=== PATIENT | male | born 1965 | race Caucasian/White ===

== ENCOUNTER 2016-09-01 12:51 | Emergency (ER) ==
[2016-09-01] MEDS ORDERED: ASPIRIN PO STA (13:37)
--- NOTE | 2016-09-01 13:54 | PROVIDER DOCUMENTATION ---
[facility] General - General Chief Complaint: Chest Pain Stated Complaint: CHEST PAIN/SOB Time Seen by Provider: 09/01/16 12:57 Source: patient Allergies/Adverse Reactions: Patient Allergies Allergy/AdvReac Type Severity Reaction Status Date / Time diphenhydramine HCl * Allergy Mild HIVES Verified 09/01/16 13:07 [From Benadryl] Home Medications: Home Medication List Medication Instructions Recorded Confirmed Last Taken Type Albuterol Sulfate 09/01/16 Unknown History - History of Present Illness-EE General Nature of Presenting Problem: Pt is 51 y/o M presents to the ED with cold like symptoms. Pt states having cough, nasal congest, chest congestion, sore throat and SOB. Pt denies F. Pt denies N/V/D. Pt states he is unsure of duration of symptoms. EENT Location: reports: nose, throat Quality of Pain: reports: pressure Severity: reports: mild Onset/Duration: reports: unsure Timing: reports: still present, intermittent Prearrival Treatment: Initiated no prearrival treatment Associated Symptoms: reports: cough, nasal congestion/drainage, sore throat. denies: change in hearing, drooling, ear drainage, facial pain/swelling, fever, malaise, poor fluid intake, poor solids intake, sinus infection, tooth pain, voice change Locality of Occurance: Home Similar Symptoms Previously?: Yes Recently seen or treated by another doctor?: No - Eyes Eye Problem Symptoms: denies: eye pain - Ears Ear Problem Symptoms: reports: none - Nose Nose Problem Symptoms: other (nasal congestion) - Throat/Dental Throat/Dental Problem Symptoms: reports: sore throat. denies: toothache, jaw pain, swelling of jaw/face, trouble breathing, throat swelling, unable to swallow Review of Systems - Adult - REVIEW OF SYSTEMS - ADULT Constitutional: denies: chills, fever Eyes: denies: blurred vision, double vision Ears, Nose, Mouth & Throat: reports: sinus problem (nasal congestion), throat pain. denies: ear pain, nose pain Cardiovascular: denies: chest pain, heart murmur, irregular heart rate Respiratory: reports: cough, shortness of breath. denies: wheezing Gastrointestinal: denies: abdominal pain, diarrhea, nausea, vomiting Genitourinary: denies: dysuria, hematuria Musculoskeletal: denies: bone pain, joint pain, neck pain Integumentary: denies: hives, itching Neurological: denies: dizziness/vertigo, headache/migraines Psychiatric: reports: no symptoms reported Endocrine: reports: no symptoms reported Hematologic/Lymphatic: reports: no symptoms reported Allergic/Immunologic: reports: no symptoms reported All Other Systems: Reviewed and Negative Past History - Adult - PAST MEDICAL HISTORY-ADULT Review of Records: reports: Nursing Assessment Review, Medications Reviewed, Social history reviewed & non-contributory. Major Childhood Illnesses: reports: denies history Cardiovascular: reports: cardiac disease, murmur Respiratory: reports: COPD Gastrointestinal: reports: denies history Obstetrical/Gynecological: reports: denies history Genitourinary: reports: denies history Musculoskeletal: reports: denies history Neurological: reports: denies history Endocrine/Immune: reports: denies history Other Conditions: reports: denies history - PRIOR SURGERIES/PROCEDURES Surgical/Procedure History: reports: other (eye surgery) - PRIOR HOSPITALIZATIONS Prior Hospitalizations: reports: none - IMMUNIZATION STATUS Childhood Immunizations: See Nurse Assessment Flu Vaccine: See Nurse Assessment - FAMILY HISTORY Family History: reviewed, not pertinent - SOCIAL HISTORY Smoking: cigarettes, greater than 1 pack/day Provider spent 3-5 mins advising pt. on dangers of tobacco.: Discussed manners to quit use, and f/u contacts for add'l counseling. Substance Use: alcohol Alcohol Use Frequency: occasionally Number of drinks per typical drinking period:: 2 drinks Living Situation: family Physical Exam- EENT - Physical Exam EENT Initial Vital Signs Reviewed: Yes General Appearance: appears well, alert, no apparent distress Eye Exam: bilateral eye: normal inspection, PERRL, EOMI Ear Exam: bilateral ear: auricle normal, canal normal, TM normal Nasal Exam: normal inspection Throat Exam: normal mouth inspection, pharynx normal Neck: non-tender, full range of motion, supple, normal inspection Respiratory: chest non-tender, no pleuratic chest pain, no respiratory distress , no accessory muscle use, rhonchi (bilateral upper), wheezing (bilateral upper) Cardiovascular: normal peripheral pulses, regular rate, rhythm, no edema, no gallop, no JVD, no murmur Abdominal Exam: normal bowel sounds, non tender, soft, no organomegaly, no pulsatile mass Lymphatic: no adenopathy Back Exam: normal inspection, no CVA tenderness, no vertebral tenderness Extremity: normal range of motion, non-tender, normal gait, normal inspection, no pedal edema, no calf tenderness, normal capillary refill, pelvis stable Integumentary: normal color, normal turgor, warm/dry 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, grossly normal, no motor/sensory deficits Psych/Mental Status: normal mood/affect, normal thought content, normal thought process, oriented x 3 Progress - PLAN OF CARE/RESULTS Progress/Plan/Lab Results: Orders Category Date Time Status Cardiac Monitoring DIRECTED Care 09/01/16 13:38 Active Oxygen Therapy- ED Nursing DIRECTED Care 09/01/16 13:38 Active Saline Loc NOW Care 09/01/16 13:38 Active CHEST-2 VIEWS [RAD] Stat Exams 09/01/16 13:38 Ordered CBC WITH ELECTRONIC DIFF [HEME] Stat Lab 09/01/16 13:38 Ordered CK PROFILE [SP CHEM] Stat Lab 09/01/16 13:38 Ordered COMPREHENSIVE METABOLIC PANEL [CHEM] Stat Lab 09/01/16 13:38 Ordered PRO B-NATRIURETIC PEPTIDE Stat Lab 09/01/16 13:38 Ordered PROTIME WITH INR PL [COAG] Stat Lab 09/01/16 13:[address] [COAG] Stat Lab 09/01/16 13:38 Ordered TROPONIN T Stat Lab 09/01/16 13:38 Ordered Aspirin Med 09/01/16 13:37 Discontinued 325 mg PO STAT STA EKG [EKG] Stat Ther 09/01/16 13:38 Ordered Vital Signs - 24 hr 09/01/16 13:00 Temperature 98.6 F Pulse Rate 95 H Respiratory 24 Rate Blood Pressure 176/102 O2 Sat by Pulse 96 Oximetry Laboratory Tests 09/01/16 09/01/16 13:52 13:52 WBC 9.03 RBC 4.55 L Hgb 14.6 Hct 42.9 MCV 94.3 MCH 32.1 H MCHC 34.0 RDW Std Deviation 12.4 Plt Count 268 MPV 8.8 Immature Gran % (Auto) 0.2 Neut % (Auto) 70.1 Lymph % (Auto) 20.3 L Lyman % (Auto) 8.5 Eos % (Auto) 0.6 Baso % (Auto) 0.3 Immature Gran # (Auto) 0.02 Neut # (Auto) 6.33 Lymph # (Auto) 1.83 Lyman # (Auto) 0.77 H Eos # (Auto) 0.05 Baso # (Auto) 0.03 PT 13.6 INR 1.01 APTT (Factor Assay) 30.9 Laboratory Tests 09/01/16 09/01/16 09/01/16 13:52 13:52 13:52 WBC 9.03 RBC 4.55 L Hgb 14.6 Hct 42.9 MCV 94.3 MCH 32.1 H MCHC 34.0 RDW Std Deviation 12.4 Plt Count 268 MPV 8.8 Immature Gran % (Auto) 0.2 Neut % (Auto) 70.1 Lymph % (Auto) 20.3 L Lyman % (Auto) 8.5 Eos % (Auto) 0.6 Baso % (Auto) 0.3 Immature Gran # (Auto) 0.02 Neut # (Auto) 6.33 Lymph # (Auto) 1.83 Lyman # (Auto) 0.77 H Eos # (Auto) 0.05 Baso # (Auto) 0.03 PT INR APTT (Factor Assay) Sodium 136 Potassium 4.1 Chloride 100 Carbon Dioxide 26 Anion Gap 10 BUN 9 Creatinine 1.0 Estimated GFR/1.73 m2 > 60 BUN/Creatinine Ratio 9 Glucose 97 Calculated Osmolality 271 Calcium 9.5 Total Bilirubin 0.20 AST 16 ALT 14 Alkaline Phosphatase 129 H Creatine Kinase 95 Troponin T < 0.010 Total Protein 7.1 Albumin 4.1 Globulin 3.0 Albumin/Globulin Ratio 1.0 09/01/16 13:52 WBC RBC Hgb Hct MCV MCH MCHC RDW Std Deviation Plt Count MPV Immature Gran % (Auto) Neut % (Auto) Lymph % (Auto) Lyman % (Auto) Eos % (Auto) Baso % (Auto) Immature Gran # (Auto) Neut # (Auto) Lymph # (Auto) Lyman # (Auto) Eos # (Auto) Baso # (Auto) PT 13.6 INR 1.01 APTT (Factor Assay) 30.9 Sodium Potassium Chloride Carbon Dioxide Anion Gap BUN Creatinine Estimated GFR/1.73 m2 BUN/Creatinine Ratio Glucose Calculated Osmolality Calcium Total Bilirubin AST ALT Alkaline Phosphatase Creatine Kinase Troponin T Total Protein Albumin Globulin Albumin/Globulin Ratio Laboratory Tests 09/01/16 09/01/16 09/01/16 13:52 13:52 13:52 WBC RBC Hgb Hct MCV MCH MCHC RDW Std Deviation Plt Count MPV Immature Gran % (Auto) Neut % (Auto) Lymph % (Auto) Lyman % (Auto) Eos % (Auto) Baso % (Auto) Immature Gran # (Auto) Neut # (Auto) Lymph # (Auto) Lyman # (Auto) Eos # (Auto) Baso # (Auto) PT INR APTT (Factor Assay) Sodium 136 Potassium 4.1 Chloride 100 Carbon Dioxide 26 Anion Gap 10 BUN 9 Creatinine 1.0 Estimated GFR/1.73 m2 > 60 BUN/Creatinine Ratio 9 Glucose 97 Calculated Osmolality 271 Calcium 9.5 Total Bilirubin 0.20 AST 16 ALT 14 Alkaline Phosphatase 129 H Creatine Kinase 95 Troponin T < 0.010 Nxi-D-Kwttqfepllw Pept 66 Total Protein 7.1 Albumin 4.1 Globulin 3.0 Albumin/Globulin Ratio 1.0 09/01/16 09/01/16 13:52 13:52 WBC 9.03 RBC 4.55 L Hgb 14.6 Hct 42.9 MCV 94.3 MCH 32.1 H MCHC 34.0 RDW Std Deviation 12.4 Plt Count 268 MPV 8.8 Immature Gran % (Auto) 0.2 Neut % (Auto) 70.1 Lymph % (Auto) 20.3 L Lyman % (Auto) 8.5 Eos % (Auto) 0.6 Baso % (Auto) 0.3 Immature Gran # (Auto) 0.02 Neut # (Auto) 6.33 Lymph # (Auto) 1.83 Lyman # (Auto) 0.77 H Eos # (Auto) 0.05 Baso # (Auto) 0.03 PT 13.6 INR 1.01 APTT (Factor Assay) 30.9 Sodium Potassium Chloride Carbon Dioxide Anion Gap BUN Creatinine Estimated GFR/1.73 m2 BUN/Creatinine Ratio Glucose Calculated Osmolality Calcium Total Bilirubin AST ALT Alkaline Phosphatase Creatine Kinase Troponin T Wdt-F-Tkowfzskhhc Pept Total Protein Albumin Globulin Albumin/Globulin Ratio - EKG 1 Time of EKG reading by physician:: 13:43 EKG Read and Signed by:: Paul Jerome EKG Interpretation (*Must complete 3 of following elements*): Normal Rate: 86 Rhythm: normal sinus rhythm Comments: normal ECG - XRAY 1 XRAY: Bilateral XRAY Study: Chest Impression: Normal XRAY Interpretation: no pneumonia and congestive failure Departure - Departure Time of Disposition Order: 15:03 DIAGNOSIS: Sinusitis Qualifiers: Sinusitis location: unspecified location Chronicity: unspecified Qualified Code (s): J32.9 - Chronic sinusitis, unspecified Chest pain Qualifiers: Chest pain type: unspecified Qualified Code(s): R07.9 - Chest pain, unspecified HTN (hypertension) Qualifiers: Hypertension type: unspecified secondary hypertension Qualified Code(s): I15.9 - Secondary hypertension, unspecified; I15 - Secondary hypertension Disposition: HOME 01 Certified Medical Emergency: Emergent Condition: Stable Additional Instructions: ED Follow Up Instructions: You have been treated by a care provider in the Emergency Department. These instructions are being provided to you so you can have an understanding of how to care for yourself upon discharge. Upon discharge from the Emergency Department, you are responsible for making arrangements for follow-up care by a physician of your choice. Take all prescribed medications as directed. Return to the Emergency Department immediately for any new or worsening symptoms. You may call the Physician Referral phone number at [phone] to obtain a list of Physicians who are taking new patients. Referrals: Tatianna Mas [Primary Care Provider] - Attestation - Scribe Verification/Attestation Scribe:: Lakesha Garcia Acting as Scribe for:: Paul Jerome Scribe documention review:: This chart was documented by a scribe and accurately reflects the service the provider performed and the decisions made by the provider.
[2016-09-01 13:58] LABS: MANUAL DIFF NEEDED? NO
[2016-09-01 14:00] LABS: BASO% 0.3 % (0.0-0.8); EOS# 0.05 X1000 (0.0-0.7); EOS% 0.6 % (0.0-10.0); HEMATOCRIT 42.9 % (42.0-52.0); HEMOGLOBIN 14.6 g/dL (14.0-18.0); IMM GRAN# 0.02 X1000 (0.0-0.04); IMM GRAN% 0.2 % (0.0-0.5); LYMPH# 1.83 X1000 (1.2-3.4); LYMPH% 20.3 % (20.5-51.1); MCH 32.1 PG (27-31); MCV 94.3 FL (81-99); MONO# 0.77 X1000 (0.11-0.59); MONO% 8.5 % (1.7-9.3); MPV 8.8 FL (7.4-10.4); NEUT% 70.1 % (42.2-75.2); PLT 268 X1000 (130-400); RBC 4.55 XMIL (4.7-6.1)
[2016-09-01 14:18] LABS: INR 1.01 (0.86-1.15); PROTIME 13.6 Seconds (12.1-15.5)
[2016-09-01 14:19] LABS: PTT PL 30.9 Seconds (22.6-43.9)
[2016-09-01 14:21] LABS: AGAP 10; ALBUMIN 4.1 g/dL (3.5-5.0); ALKALINE PHOSPHATASE 129 U/L (32-122); BUN 9 mg/dL (8-22); CALCIUM 9.5 mg/dL (8.8-10.2); CHLORIDE 100 mmol/L (98-107); CK PROFILE 95 U/L (24-204); COSMO 271; GOT 16 U/L (10-34); GPT 14 U/L (10-44); POTASSIUM 4.1 mmol/L (3.5-5.1); SODIUM 136 mmol/L (136-145); TCO2 26 mmol/L (25-35); TOTAL PROTEIN 7.1 g/dL (6.3-8.3)
--- NOTE | 2016-09-01 14:24 | Diag Imaging Result Document ---
PROCEDURE NAME: CHEST-2 VIEWS - 09/01/2016 FRONTAL AND LATERAL CHEST, TWO VIEWS: COMPARISON: 10/07/2015. FINDINGS: The lungs are well expanded. The heart is not enlarged. The pulmonary vessels are small. There are no infiltrates. No pleural effusions. IMPRESSION: No pneumonia or congestive failure.
[2016-09-01 14:26] VITALS: BP 174/118
[2016-09-01] MEDS ORDERED: TRANDATE PO ONE (14:32)
--- NOTE | 2016-09-01 14:39 | EKG Report ---
Test Performed on : 09/01/2016 1:43:08 PM Test Reason : CHEST PAIN Blood Pressure : / mmHG Vent. Rate : 086 BPM Atrial Rate : 086 BPM P-R Int : 154 ms QRS Dur : 074 ms QT Int : 354 ms P-R-T Axes : 083 067 056 degrees QTc Int : 423 ms Normal sinus rhythm. Normal ECG When compared with ECG of 07-OCT-2015 21:11, No significant change was found Unconfirmed Result
== END 2016-09-01 15:31 | disposition home or self-care (01) ==
LOC: P.ED 12:51
DX: J32.9 Chronic sinusitis, unspecified (principal); R07.9 Chest pain, unspecified; I10 Essential (primary) hypertension; R06.02 Shortness of breath; R05 Cough; R09.81 Nasal congestion; J02.9 Acute pharyngitis, unspecified; R06.2 Wheezing; J44.9 Chronic obstructive pulmonary disease, unspecified; F17.210 Nicotine dependence, cigarettes, uncomplicated; Z71.6 Tobacco abuse counseling
CPT/HCPCS: 36415; 71020; 80053; 82550; 83880; 84484; 85025; 85610; 85730; 93005